=== PATIENT | male | born 1960 ===

== ENCOUNTER 2017-09-26 11:02 | Day surgery (SDC) | payer BC ==
[2017-09-17 08:37] VITALS: BMI 25.9
[2017-09-26] MEDS ORDERED: Midazolam 2 MG/2 ML VIAL ONE (13:22)
[2017-09-26] MEDS ORDERED: Propofol 10 mg/ml Inj (20 ML) ONE ×3 (13:22→15:22)
[2017-09-26] MEDS ORDERED: Lidocaine Hydrochloride 5 ML INJ ONE (13:26)
[2017-09-26] MEDS ORDERED: Lactated Ringer's 1,000 ML IV ONE ×3 (13:39→19:00)
[2017-09-26] MEDS ORDERED: Rocuronium 10 mg/ml (10 ml) ONE (13:55)
[2017-09-26] MEDS ORDERED: ceFAZolin IV 1 gm in Dextrose 1 GM/50 ML BAG IVPB ONE (14:05)
[2017-09-26] MEDS ORDERED: Neostigmine Methylsulfate 3mg/3ml Syringe IV ONE (14:44)
[2017-09-26] MEDS ORDERED: Morphine 4 MG/ML VIAL ONE (14:52)
[2017-09-26] MEDS ORDERED: Bupivacaine HCl 0.5% PF (10 ml) Inj ONE (15:24)
--- NOTE | 2017-09-26 15:53 | PCM.SURG1 ---
Surgeon's Initial Post Op Note - Surgeon's Notes Surgeon: [employer]: Martha PGY3 Type of Anesthesia: General Endo, Local Pre-Operative Diagnosis: Umbilical hernia and R inguinal hernia Operative Findings: Umbilical hernia and indirect R inguinal hernia Post-Operative Diagnosis: same Operation Performed: open repair of umbilical hernia and and R inguinal hernia w. mesh Specimen/Specimens Removed: none Estimated Blood Loss: EBL {In ML}: 20 Blood Products Given: N/A Drains Used: No Drains Post-Op Condition: Good Date of Surgery/Procedure: 09/26/17 Time of Surgery/Procedure: 15:53
[2017-09-26] MEDS ORDERED: HYDROmorphone 0.5 mg/0.5 ml ISec IVP PRN (15:54)
[2017-09-26 17:43] VITALS: PULSE 100; RESP 16; O2SAT 98
[2017-09-26] MEDS ORDERED: Lactated Ringer's 500 ML IV ONE (18:55)
[2017-09-26 19:07] VITALS: BP 119/77; TEMP 97.6
--- NOTE | 2017-09-27 00:36 | OP ---
PROCEDURE DATE: 09/26/2017 PREOPERATIVE DIAGNOSIS: Ventral hernia and right inguinal hernia. PROCEDURE CARRIED OUT: Repair of ventral hernia with mesh, C-Qur mesh, 8 cm, and right indirect inguinal hernia with PHS large Prolene hernia system. SURGEON: Clifton Soria Jr., MD TAFFY PULLER: Dr. Thomas. ANESTHESIOLOGIST: . INDICATIONS: The patient is a middle aged man with previous nephrectomy, presents with a ventral hernia adjacent to the umbilicus as well as a quite large right inguinal hernia. OPERATIVE FINDINGS: There was no bowel incarcerated into the hernia. There was omentum, which was reduced. In addition, the inguinal hernia was a large indirect inguinal hernia, which contained fat. No bowel was involved. DESCRIPTION OF PROCEDURE: The patient was given general anesthesia, intravenous antibiotics. Venodyne boots were applied. Standard skin prep with placement of drape was carried out and the ventral hernia was repaired first. After successful repair of this with implantation of a C-Qur mesh, we closed this wound and dressed it and then moving down to the groin, changed our gloves, other equipment, and then carried out a repair of the right inguinal hernia using a PHS Prolene hernia system. The standard repair was carried out, with identification of the sac, preservation of the nerves, preservation of the vascular supply to the vesicle. This was then sutured and stapled into place with good apposition and then the skin was closed with subcuticular closure and Steri-Strips. Marcaine was injected prior to closure. Blood loss for the total procedure was less than 50 mL. Again, repair of ventral hernia with mesh and repair of right inguinal hernia with mesh. Clifton Soria Jr., MD cc: Rambo Grossman MD.
== END 2017-09-26 20:20 | disposition home or self-care (01) ==
LOC: C.SDS 11:02
PROVIDERS: ATTEND Surgery Vascular Surgery
DX: K43.9 Ventral hernia without obstruction or gangrene (principal); K40.90 Unilateral inguinal hernia, without obstruction or gangrene, not specified as recurrent; Z90.5 Acquired absence of kidney
CPT/HCPCS: 49505; 49560; 49568; J0690; J1100; J1170; J1885; J2250; J2270; J2405; J2704; J2710; J2765; J3010; J7120